=== PATIENT | male | born 1965 | race Caucasian/White ===

== ENCOUNTER 2018-09-04 08:14 | Emergency (ER) | payer OTHER, MEDICAID ==
[~2018-09-04] VITALS: Ht 172.7 cm; Wt 70.3 kg
[~2018-09-04 08:14] MED LIST: ACYC200C PO; EMTR1TAB12 PO; LEVO500T20 PO; METR500T PO; PRED10TA PO; RALT400T PO; RALTEGRAVIR; RITO100T PO
[2018-09-04] MEDS ORDERED: NACL 0.9% 2,000 ML IV SCH (08:17)
--- NOTE | 2018-09-04 08:19 | NUR ---
Placed in room 01 . Placed on monitor and storage bin tender, blood pressure machine and pulse oximeter. To gown for exam. Side rails up.
[2018-09-04 08:20] VITALS: BP_SYST 82
--- NOTE | 2018-09-04 08:20 | NUR ---
Patient arrived via [facility]. Patient c/c of rectal GI bleeding. Patient states bleeding from rectum began yesterday. Patient states increasing weakness since yesterday. Patient was found on toilet in the home, dark tarry stool noted to toilet by EMS. Patient states he felt so weak he couldnt get up from the toilet, prompting call to EMS. Per EMS report, patient blood pressure was 49/29. Patient vital signs upon arrival are BP 82/49 HR at 105. Patient states chest pain present, and feels intensely cold. Patient shivering. Patient denies shortness of breath, 100% on RA, and RR at 28. Patient has non-pitting edema noted to bilateral lower extremities. Patient has history of HEP-C, cirrhosis, cholecystectomy, HIV + (undetectable viral load at this time.) Patient has no history of rectal bleeding. Will continue to follow up and monitor.
--- NOTE | 2018-09-04 08:22 | NUR ---
Dr Lozoya at bedside examining patient
--- NOTE | 2018-09-04 08:23 | NUR ---
# 18 gauge angiocath placed to RAC. Use of asceptic technique. Opsite placed over site. Blood return noted. Blood for lab drawn from site. Flushed with 10 cc of normal saline. No evidence of infiltration noted. Patient tolerated well.
[2018-09-04] MEDS ORDERED: ONDANSETRON HCL 4 MG/2 ML VIAL IVP ONE (08:30)
[2018-09-04] MEDS ORDERED: PANTOPRAZOLE SODIUM 40 MG/VIAL (PROTONIX) IVP ONE (08:30)
--- NOTE | 2018-09-04 08:30 | NUR ---
Patient given IV protonix, IV zofran. 2nd bag of IVF began, 0.9% NS. 1L NS started by EMS. Patient tolerated well.
--- NOTE | 2018-09-04 08:35 | NUR ---
Unable to draw blood specimen. Attempted x3 and patient refusing at this time the continued attempts. Informed patient of the need for blood draw, he states he will have the other phleb draw in 5 minutes.
[2018-09-04] MEDS ORDERED: DOLU1TAB PO (08:47)
[2018-09-04] MEDS ORDERED: ACYC400T PO (08:47)
[2018-09-04] MEDS ORDERED: AMIL5TAB9 PO (08:47)
[2018-09-04] MEDS ORDERED: FURO80TA3 PO (08:47)
[2018-09-04] MEDS ORDERED: RITO100T PO (08:47)
[2018-09-04] MEDS ORDERED: EMTR1TAB12 PO (08:47)
[2018-09-04] MEDS ORDERED: TRAZ-218 PO (08:47)
--- NOTE | 2018-09-04 08:47 | NUR ---
XR at bedside for completion of chest XR.
--- NOTE | 2018-09-04 08:48 | NUR ---
Medication reconciliation completed with information provided by patient . Any prior medication reconciliation on file was reviewed and corrected.
--- NOTE | 2018-09-04 09:01 | NUR ---
Informed MD after 2 additional nurses attempted blood draw. Patient blood pressure remains 102/46 after 2L NS infusion completed. 3rd liter of normal saline given. MD Lozoya to see patient, possible central line placement.
--- NOTE | 2018-09-04 09:06 | NUR ---
Informed MD of patient 01/20 generalized body ache type pain and headache. Patient offered tylenol for pain, refused at this time.
[2018-09-04] MEDS ORDERED: LIDOCAINE 1% 10 MG/ML, 20 ML MDV INJ ONE (09:30)
--- NOTE | 2018-09-04 09:35 | NUR ---
Attempted to get central line placed, unable to obtain. Patient refusing additional attempt.
--- NOTE | 2018-09-04 09:45 | NUR ---
Unable to obtain central line, called to OR to see if another MD would be available to attempt. Or discuss other options. They are finishing 2 cases, will call when available.
--- NOTE | 2018-09-04 10:10 | NUR ---
to call with Dr. Lozoya and Dr. Tamayo per patient request. MD would like to transfer patient. Will wait for blood results and assess for stability.
--- NOTE | 2018-09-04 10:21 | NUR ---
Blood was able to be obtained by mireille Diaz. Taken to lab for resulting. aware of able to obtain. Blood band applied to patient.
[2018-09-04 10:35] LABS: HEMATOCRIT 25.2 % (36-54); HEMOGLOBIN 8.9 g/dL (14.0-18.0); MEAN CORPUSCULAR VOLUME 106 fL (79.0-98.0); RED BLOOD CELL COUNT(AUTO) 2.37 MIL/uL (4.2-6.2); WHITE BLOOD COUNT (AUTO) 7.9 K/uL (4.8-10.8)
[2018-09-04 10:36] LABS: MEAN CORPUSCULAR HEMOGLOBIN 37 pg (27-31); MEAN CORPUSCULAR HGB CONC 35 % (32-36); PLATELET COUNT (AUTO) 170 K/uL (130-430); RED CELL DISTRIBUTION WIDTH 13.4 % (9.0-15.0)
[2018-09-04 10:46] LABS: INR 1.2 (0.80-1.20); PROTHROMBIN TIME 11.9 SECS (9.5-12.5)
[2018-09-04 10:57] LABS: CALCIUM 7.1 mg/dL (8.4-11.0); CREATININE 0.7 mg/dL (0.55-1.30); POTASSIUM 4.3 mmol/L (3.5-5.1)
[2018-09-04 11:02] LABS: ALBUMIN 1.9 g/dL (3.4-4.8); TOTAL BILIRUBIN 0.4 mg/dL (0.0-1.0)
[2018-09-04 11:07] LABS: LYMPHOCYTES % (AUTO) 15.6 % (20.5-51.5); NEUTROPHILS % (AUTO) 73.9 % (40.0-70.0)
[2018-09-04 11:08] LABS: MONOCYTES % (AUTO) 7.2 % (1.7-9.3)
[2018-09-04 11:14] LABS: BASOPHILS % (AUTO) 0.4 % (0.0-2.0); EOSINOPHILS # (AUTO) 0.2 K/uL (0.0-0.4); EOSINOPHILS % (AUTO) 2.9 % (0.0-4.0); LYMPHOCYTES # (AUTO) 1.2 K/uL (1.0-5.5); MONOCYTES # (AUTO) 0.6 K/uL (0.0-1.0); NEUTROPHILS # (AUTO) 5.9 K/uL (1.8-7.7)
--- NOTE | 2018-09-04 11:20 | NUR ---
Patient cleaned and placed in transfer linens, patient has absorbant pads placed for absorbancy. Patient provided urine specimen, sent to lab.
--- NOTE | 2018-09-04 11:59 | NUR ---
Report called to AUREA Gómez at [facility]
--- NOTE | 2018-09-04 11:59 | NUR ---
EMS crew arrived for transfer, report given at patient bedside.
--- NOTE | 2018-09-04 12:00 | NUR ---
Patient to be transferred to [facility] Is being transferred due to higher level of care. Receiving facility has accepting physician and available space. ER physician has signed transfer form. Patient or responsible constitution party has agreed to transfer and signed form. Patient belongings inventoried and will be sent with patient. Copy of nursing notes, lab reports, EKG, Physicians Orders and X-rays to be sent with patient. Report called to AUREA Gómez at receiving facility. Receiving physician is Dr. Lieberman. [facility] called for transfer.
[2018-09-04 12:10] VITALS: BP_SYST 114
== END 2018-09-04 12:00 | disposition short-term general hospital (02) ==
LOC: SED 08:14
DX: K92.2 Gastrointestinal hemorrhage, unspecified (principal); D64.9 Anemia, unspecified; Z86.19 Personal history of other infectious and parasitic diseases; Z90.49 Acquired absence of other specified parts of digestive tract; Z88.0 Allergy status to penicillin; Z88.2 Allergy status to sulfonamides; Z88.8 Allergy status to other drugs, medicaments and biological substances; Z79.899 Other long term (current) drug therapy
CPT/HCPCS: 36415; 71045; 80053; 85025; 85610; 85730; 86886; 86900; 86901; 93005; 96374; 96375; 99285; C1751; C9113; J2001; J2405; J7030

== ENCOUNTER 2019-01-13 04:32 | Emergency (ER) | payer OTHER, MEDICAID ==
[~2019-01-13] VITALS: Ht 177.8 cm; Wt 74.8 kg
[~2019-01-13 04:32] MED LIST changes: -ACYC200C PO; +ACYC400T PO; +AMIL5TAB9 PO; +DOLU1TAB PO; +FURO80TA3 PO; -LEVO500T20 PO; -METR500T PO; -PRED10TA PO; -RALT400T PO; -RALTEGRAVIR; +TRAZ-218 PO
--- NOTE | 2019-01-13 04:32 | NUR ---
Placed in room 1 . Placed on cardiac cath technologist, blood pressure machine and pulse oximeter. To gown for exam. Side rails up.
--- NOTE | 2019-01-13 04:34 | NUR ---
First contact with patient. Patient brought to ED via [facility] [address] w/ c/o CP s/p methamphetamine use. Patient presents in bed a/o x 4 with irradic/spastic movement. States three separate usages of methamphetamine with last use at 0100. Onset of CP x 1 hour following drug use. Described as chest pressure w/ associated N/V and diaphoresis. Incidentally patient recovering from hernia surgery on 12/16/18. [place] drain to right flank. Patient prescribed norco s/p surgery and has taken 5-325 tablets (5 times) over last 12 hours. Patient afebrile.
--- NOTE | 2019-01-13 04:37 | NUR ---
EKG done at bedside. pt tolerated well.
[2019-01-13 04:39] VITALS: BP_SYST 161
--- NOTE | 2019-01-13 04:51 | NUR ---
ER Dr. Holloway at bedside examining patient.
[2019-01-13] MEDS ORDERED: ONDANSETRON HCL 4 MG/2 ML VIAL IVP ONE (05:00)
[2019-01-13] MEDS ORDERED: NS 500 ML IV ONE (05:00)
[2019-01-13] MEDS ORDERED: LORazepam 2 MG/ML VIAL IVP ONE ×2 (05:00→05:45)
[2019-01-13] MEDS ORDERED: MORPHINE 4 MG/ML INJ. SYRINGE IVP ONE (05:00)
[2019-01-13 05:10] LABS: BASOPHILS % (AUTO) 0.3 % (0.0-2.0); EOSINOPHILS # (AUTO) 0.1 K/uL (0.0-0.4); EOSINOPHILS % (AUTO) 1.1 % (0.0-4.0); HEMATOCRIT 33.5 % (36-54); LYMPHOCYTES # (AUTO) 1.2 K/uL (1.0-5.5); LYMPHOCYTES % (AUTO) 10.9 % (20.5-51.5); MEAN CORPUSCULAR HEMOGLOBIN 30 pg (27-31); MEAN CORPUSCULAR HGB CONC 33 % (32-36); MEAN CORPUSCULAR VOLUME 92 fL (79.0-98.0); MONOCYTES # (AUTO) 1.1 K/uL (0.0-1.0); MONOCYTES % (AUTO) 10.2 % (1.7-9.3); NEUTROPHILS # (AUTO) 8.7 K/uL (1.8-7.7); NEUTROPHILS % (AUTO) 77.5 % (40.0-70.0); PLATELET COUNT (AUTO) 233 K/uL (130-430); RED BLOOD CELL COUNT(AUTO) 3.66 MIL/uL (4.2-6.2); RED CELL DISTRIBUTION WIDTH 16.5 % (9.0-15.0); WHITE BLOOD COUNT (AUTO) 11.2 K/uL (4.8-10.8)
[2019-01-13 05:14] LABS: CREATININE 1.07 mg/dL (0.55-1.30); POTASSIUM 3.4 mmol/L (3.5-5.1)
[2019-01-13] MEDS ORDERED: LORazepam 2 MG/ML VIAL (FOR ER USE) ONE ×2 (05:21→05:57)
[2019-01-13 05:23] LABS: ALBUMIN 3.5 g/dL (3.4-4.8); TOTAL BILIRUBIN 1.6 mg/dL (0.0-1.0)
--- NOTE | 2019-01-13 06:01 | NUR ---
35 cc of sanguineous drainage to right sided CAR[place]INA.
[2019-01-13 06:41] VITALS: BP_SYST 144
--- NOTE | 2019-01-13 06:41 | NUR ---
Patient given written and verbal discharge instructions and verbalizes understanding. ER MD discussed with patient the results and treatment provided. Patient in stable condition. ID arm band removed. IV catheter removed intact and dressing applied, no active bleeding. No Rx given. Patient educated on pain management and to follow up with PMD. Pain Scale 0/10. Opportunity for questions provided and answered.
== END 2019-01-13 06:41 | disposition home or self-care (01) ==
LOC: SED 04:32
DX: R07.89 Other chest pain (principal); F15.10 Other stimulant abuse, uncomplicated; F17.200 Nicotine dependence, unspecified, uncomplicated; Z90.49 Acquired absence of other specified parts of digestive tract; Z86.19 Personal history of other infectious and parasitic diseases; Z88.0 Allergy status to penicillin; Z88.2 Allergy status to sulfonamides; Z88.8 Allergy status to other drugs, medicaments and biological substances; Z79.899 Other long term (current) drug therapy
CPT/HCPCS: 36415; 71045; 80053; 84484; 85025; 96374; 96375; 99284; J2060; J2270; J2405; J7030